=== PATIENT | male | born 1945 | race Caucasian/White ===

== ENCOUNTER 2017-01-24 06:22 | Emergency (ER) | payer MEDICARE, OTHER ==
[~2017-01-24] VITALS: Ht 172.7 cm; Wt 115.0 kg
[2017-01-24] MEDS ORDERED: ATOR40TA78 PO (06:51)
[2017-01-24] MEDS ORDERED: MEXI150C PO (06:51)
[2017-01-24] MEDS ORDERED: LISI-167 PO (06:52)
[2017-01-24] MEDS ORDERED: PANT40TA5 PO (06:52)
[2017-01-24] MEDS ORDERED: CARV12.52 PO (06:53)
[2017-01-24] MEDS ORDERED: CLOP75TA22 PO (06:53)
[2017-01-24] MEDS ORDERED: FURO20TA3 PO (06:57)
[2017-01-24] MEDS ORDERED: ASPI-515 PO (06:57)
[2017-01-24] MEDS ORDERED: METF500T4 PO (06:58)
[2017-01-24] MEDS ORDERED: AMIO400T4 PO (06:59)
[2017-01-24] MEDS ORDERED: ASPIRIN 81 MG TABLET CHEW PO ONE (07:00)
[2017-01-24] MEDS ORDERED: SODIUM CHLORIDE FLUSH 10ML SYR IVF ONE (07:00)
[2017-01-24] MEDS ORDERED: ASPIRIN 81 MG TABLET CHEW ONE (07:06)
[2017-01-24 07:17] LABS: BLOOD UREA NITROGEN 24 mg/dL (7-18)
[2017-01-24 07:37] LABS: IS PT STATUS REG ER OR PRE ER? YES
[2017-01-24] MEDS ORDERED: FUROSEMIDE 40 MG/4 ML IVPush ONE (09:00)
[2017-01-24] MEDS ORDERED: FUROSEMIDE 40 MG/4 ML ONE (09:42)
[2017-01-24 10:37] VITALS: BP 113/78
== END 2017-01-24 10:41 | disposition home or self-care (01) ==
LOC: ED 07:26
DX: R06.00 Dyspnea, unspecified (principal); I11.0 Hypertensive heart disease with heart failure; E11.9 Type 2 diabetes mellitus without complications; I48.91 Unspecified atrial fibrillation; Z95.0 Presence of cardiac pacemaker; Z95.1 Presence of aortocoronary bypass graft; Z95.810 Presence of automatic (implantable) cardiac defibrillator; Z88.8 Allergy status to other drugs, medicaments and biological substances
CPT/HCPCS: 36415; 71010; 78582; 80048; 82040; 83880; 84484; 85025; 85379; 85610; 85730; 93005; 96374; 99285; A9540; A9558; C9898; J1940